=== PATIENT | male | born 1950 | race Caucasian/White ===

== ENCOUNTER 2016-07-10 02:37 | Inpatient (IN) ==
--- NOTE | 2016-07-06 09:13 | EKG Report ---
Test Performed on : 07/06/2016 09:03:07 AM Test Reason : PAT Blood Pressure : / mmHG Vent. Rate : 063 BPM Atrial Rate : 063 BPM P-R Int : 170 ms QRS Dur : 092 ms QT Int : 398 ms P-R-T Axes : 068 105 079 degrees QTc Int : 407 ms Normal sinus rhythm. Rightward axis Borderline ECG When compared with ECG of 15-MAY-2013 14:11, No significant change was found Confirmed by Francisco Javier CAMPBELL, Abrahan Huitron ([id number]) on 07/08/2016 1:14:30 PM
[2016-07-06 10:16] LABS: MANUAL DIFF NEEDED? NO; URINE MICRO REVIEW NEEDED? NO; URINE SOURCE CLEAN CATCH
[2016-07-06 10:30] LABS: BASO% 0.5 % (0.0-0.8); EOS# 0.09 X1000 (0.0-0.7); HEMATOCRIT 37.3 % (42.0-52.0); HEMOGLOBIN 12.1 g/dL (14.0-18.0); IMM GRAN# 0.02 X1000 (0.0-0.04); IMM GRAN% 0.2 % (0.0-0.5); LYMPH# 2.66 X1000 (1.2-3.4); LYMPH% 30.9 % (20.5-51.1); MCHC 32.4 g/dL (33-37); MCV 89.4 FL (81-99); MONO# 1.36 X1000 (0.11-0.59); MONO% 15.8 % (1.7-9.3); MPV 9.8 FL (7.4-10.4); NEUT% 51.6 % (42.2-75.2); PLT 413 X1000 (130-400); RBC 4.17 XMIL (4.7-6.1)
[2016-07-06 10:32] LABS: BILIRUBIN URINE NEGATIVE (NEGATIVE); BLOOD URINE NEGATIVE (NEGATIVE); COLOR STRAW; GLUCOSE URINE NEGATIVE (NEGATIVE); LEUKOCYTES URINE NEGATIVE (NEGATIVE); NITRITE URINE NEGATIVE (NEGATIVE); PH URINE 6.5; PROTEIN URINE NEGATIVE (NEGATIVE); SP GRAVITY URINE 1.006; TURBIDITY URINE CLEAR (CLEAR); UROBILINOGEN URINE NORMAL (NORMAL)
[2016-07-06 10:34] LABS: UR EPITHELIAL CELLS <10 /HPF (<10); URINE BACTERIA NEGATIVE /HPF; URINE RBC <10 /HPF (<10); URINE WBC <10 /HPF (<10)
[2016-07-06 11:11] LABS: PROTIME 9.7 Seconds (9.2-11.7); PTT 26.1 Seconds (22.0-36.0)
[2016-07-06 11:12] LABS: AGAP 12; BUN 9 mg/dL (8-22); CALCIUM 9.2 mg/dL (8.8-10.2); CHLORIDE 102 mmol/L (98-107); COSMO 282; INR 0.95; POTASSIUM 4.3 mmol/L (3.5-5.1); SODIUM 142 mmol/L (136-145); TCO2 28 mmol/L (25-35)
[2016-07-10] MEDS ORDERED: DIPRIVAN 1% 50 ML ONE (06:04)
[2016-07-10] MEDS ORDERED: TORADOL ONE (06:51)
[2016-07-10] MEDS ORDERED: DURAMORPH ONE (06:52)
[2016-07-10] MEDS ORDERED: MARCAINE 0.25% PF/EPI 1:200,000 ONE (06:52)
[2016-07-10] MEDS ORDERED: VANCOMYCIN ONE (06:52)
[2016-07-10] MEDS ORDERED: NEOSPORIN G.U. IRRIGANT ONE (06:52)
[2016-07-10] MEDS ORDERED: EXPAREL 1.3% ONE (06:53)
[2016-07-10] MEDS ORDERED: LYRICA ONE (06:56)
[2016-07-10] MEDS ORDERED: REGLAN ONE (06:56)
[2016-07-10] MEDS ORDERED: COLACE ONE (06:56)
[2016-07-10] MEDS ORDERED: PEPCID ONE (06:56)
[2016-07-10] MEDS ORDERED: KEFZOL 2 GM/D5W 50 ML ONE (06:57)
[2016-07-10] MEDS ORDERED: CELEBREX ONE (06:57)
[2016-07-10] MEDS ORDERED: LR 1,000 ML ONE (06:57)
[2016-07-10] MEDS ORDERED: SODIUM CHLORIDE 0.9% ONE (07:00)
[2016-07-10] MEDS ORDERED: CYKLOKAPRON 1,000 MG/NS 100 ML ONE (07:53)
[2016-07-10] MEDS: CYKLOKAPRON 1,000 MG/NS 100 ML ONE ×2 (08:55→10:25)
[2016-07-10 10:00] LABS: URINE MICRO REVIEW NEEDED? NO; URINE SOURCE CATH
[2016-07-10 10:04] LABS: BILIRUBIN URINE NEGATIVE (NEGATIVE); BLOOD URINE NEGATIVE (NEGATIVE); COLOR YELLOW; GLUCOSE URINE NEGATIVE (NEGATIVE); LEUKOCYTES URINE NEGATIVE (NEGATIVE); NITRITE URINE NEGATIVE (NEGATIVE); PH URINE 5.5; PROTEIN URINE NEGATIVE (NEGATIVE); TURBIDITY URINE CLEAR (CLEAR); UROBILINOGEN URINE NORMAL (NORMAL)
[2016-07-10 10:05] LABS: UR EPITHELIAL CELLS <10 /HPF (<10); URINE BACTERIA NEGATIVE /HPF; URINE RBC <10 /HPF (<10); URINE WBC <10 /HPF (<10)
[2016-07-10] MEDS ORDERED: NS 1,000 ML ONE (10:41)
[2016-07-10] MEDS ORDERED: MORPHINE IV PRN (12:00)
[2016-07-10] MEDS ORDERED: ZOFRAN IV PRN (12:00)
[2016-07-10] MEDS ORDERED: MILK OF MAGNESIA PO PRN (12:00)
[2016-07-10] MEDS ORDERED: AMBIEN PO PRN (12:00)
[2016-07-10] MEDS: ULTRAM PO SCH ×2 (12:38→18:05)
[2016-07-10] MEDS: TYLENOL PO SCH ×2 (12:38→17:54)
[2016-07-10] MEDS: NS 1,000 ML IV SCH ×2 (12:39→21:43)
[2016-07-10] MEDS ORDERED: VERSED ONE (13:23)
[2016-07-10] MEDS ORDERED: FENTANYL ONE (13:24)
[2016-07-10] MEDS ORDERED: KETAMINE (DOSE) ONE (13:25)
[2016-07-10] MEDS ORDERED: NEO-SYNEPHRINE ONE (14:44)
[2016-07-10] MEDS ORDERED: XYLOCAINE-MPF 2% ONE (14:44)
[2016-07-10] MEDS ORDERED: ZEMURON ONE (14:45)
[2016-07-10] MEDS ORDERED: DECADRON ONE (14:45)
[2016-07-10] MEDS ORDERED: LR 3,000 ML ONE (14:45)
[2016-07-10] MEDS ORDERED: OFIRMEV 1000 MG/ISOTONIC SOLN 100 ML ONE (14:45)
--- NOTE | 2016-07-10 16:08 | OPERATIVE NOTE ---
PROCEDURE DATE: 07/10/2016 PREOPERATIVE DIAGNOSIS: Left knee degenerative joint disease. POSTOPERATIVE DIAGNOSIS: Left knee degenerative joint disease. PROCEDURE: Left total knee arthroplasty using [employer] size 10 femoral component, a size 10 tibial base plate, a 12 mm articular insert, and a 38 mm patellar component. ANESTHESIA: Spinal. SURGEON: Jesse Rivera MD JOINT RUNNER: Fern Chauhan PA-C COMPLICATIONS: None. BLOOD LOSS: Minimal. DRAINS: Hemovac x1. TOURNIQUET TIME: Approximately an hour and a half. DESCRIPTION OF PROCEDURE: The patient was brought to the operative suite and placed in supine position. After successful administration of spinal anesthesia, a well-padded tourniquet was placed on the left proximal thigh. The left lower extremity was prepped and draped in the usual sterile fashion. Leg was exsanguinated. Tourniquet insufflated to 350 torr. Longitudinal incision was then made beginning at the superior pole of the patella and extended distally to the tibia tuberosity, it was dissected sharply through the skin and subcutaneous tissue. Full- thickness skin flaps were elevated medially and laterally. A medial arthrotomy was made with a vastus snip. The medial capsule was elevated off the medial tibial plateau. The prepatellar fat pad, ACL, PCL, medial meniscus, lateral meniscus were excised. A drill was entered in the distal femur. An intramedullary guide was placed. Distal cutting block was pinned into place, distal cut made with an oscillating saw. The femur was sized to a size 10. A size 10 cutting block was then pinned into place and the anterior cuts, chamfer cuts, and posterior condylar cuts were made with the oscillating saw. Marginal osteophytes removed with a rongeur. A box cutting block was pinned into place. A box cut was made with a box osteotome and oscillating saw. Posterior condyle osteophytes removed with curved osteotome and rongeur. Attention was then directed to the tibia. A drill was entered in the center of the tibia. An intramedullary guide was placed. Alignment checked with drop daryl, referencing off the anterior cortex of the tibia and the second ray of the foot, and taking 2 mm off the low side of the tibia, which in this case, was medially. The tibial cutting block was pinned into place. The articular surface tibial plateau was then removed with the oscillating saw. There was found to be still sclerotic bone medially, therefore, an extra 2 mm was taken off the tibia. The flexion-extension gaps were checked and balanced at 12 mm. The tibia sized to size 10. A size 10 guide was used for the fin punch. The tibial trial, femoral trial, and articular insert trial were placed and taken through range of motion, found to have excellent alignment, balancing, range of motion. Attention was then directed to the patella and 9 mm of the articular surface of patella removed with oscillating saw. Patella sized to size 38. A size 38 guide was used drill peg holes. The lateral facet was chamfered 30 to 45 degrees. Patella trial was placed, taken through range of motion. He was found to have the patella subluxing laterally slightly and tilting. A lateral release was performed and this improved his patellar tracking. All trials were then removed. The knee was copiously irrigated and dried, being certain all bone bruise removed. The tibial component, femoral component, patellar component were cemented into place, excess cement being removed with a [place]. Once the cement had hardened, excess cement was again removed with osteotome, knee was copiously irrigated and dried, being certain all bone and cement debris were removed. The trial articular insert was removed. The knee was copiously infiltrated with Exparel, including the posterior capsule, anterior capsule, medial and lateral collateral ligaments, anterior musculature. A drain was placed exiting superior laterally and buried in the lateral gutter. The trial articular insert again was removed. The definitive articular insert 12 mm was locked into place and the knee was again taken through range of motion. Again, found to have excellent alignment, balancing, range of motion, patellar tracking. The knee was again copiously irrigated and dried. The medial arthrotomy was closed with 0 Vicryl. Skin edge approximated with 2-0 Vicryl. Skin was closed with skin joseluis. A sterile dressing was applied. The patient tolerated the procedure well without complication. At the end of the procedure, all counts correct x2. The patient was transferred to the recovery room in stable condition.
[2016-07-10] MEDS: OXY IR PO PRN ×2 (17:53→21:43)
[2016-07-10] MEDS: KEFZOL 2 GM/D5W 50 ML IV SCH (17:54)
[2016-07-10] MEDS ORDERED: PERIDEX MT SCH (21:00)
[2016-07-10] MEDS: CELEBREX PO SCH (21:38)
[2016-07-10] MEDS: COLACE PO SCH (21:38)
[2016-07-10] MEDS: LYRICA PO SCH (21:43)
[2016-07-11] MEDS: ULTRAM PO SCH ×2 (00:46→06:22)
[2016-07-11] MEDS: TYLENOL PO SCH ×2 (00:47→06:22)
[2016-07-11] MEDS: KEFZOL 2 GM/D5W 50 ML IV SCH (00:47)
[2016-07-11] MEDS: NS 1,000 ML IV SCH (01:38)
[2016-07-11 05:51] LABS: HEMATOCRIT 29.3 % (42.0-52.0); HEMOGLOBIN 9.3 g/dL (14.0-18.0)
[2016-07-11] MEDS ORDERED: XARELTO PO SCH (06:00)
[2016-07-11 06:06] LABS: AGAP 14; BUN 13 mg/dL (8-22); CALCIUM 8.7 mg/dL (8.8-10.2); CHLORIDE 100 mmol/L (98-107); COSMO 278; SODIUM 138 mmol/L (136-145); TCO2 24 mmol/L (25-35)
[2016-07-11 07:50] VITALS: BP 122/83
[2016-07-11] MEDS ORDERED: PRINIVIL PO SCH (09:00)
[2016-07-11] MEDS ORDERED: ZYLOPRIM PO SCH (09:00)
[2016-07-11] MEDS ORDERED: PRAVACHOL PO SCH (09:00)
[2016-07-11] MEDS ORDERED: HYDROCHLOROTHIAZIDE PO SCH (09:00)
[2016-07-11] MEDS ORDERED: FOLIC ACID PO SCH (09:00)
[2016-07-11] MEDS ORDERED: NEXIUM PO SCH (09:00)
[2016-07-11] MEDS ORDERED: PEPCID PO SCH (09:00)
[2016-07-11] MEDS ORDERED: DECADRON IV ONE (09:00)
[2016-07-11] MEDS ORDERED: TENORMIN PO SCH (09:00)
[2016-07-11] MEDS ORDERED: ASPIRIN PO SCH (09:00)
[2016-07-11] MEDS: CELEBREX PO SCH (09:27)
[2016-07-11] MEDS: COLACE PO SCH (09:28)
[2016-07-11] MEDS: LYRICA PO SCH (09:32)
--- NOTE | 2016-07-11 20:45 | DISCHARGE SUMMARY ---
ADMISSION DATE: 07/10/2016 DISCHARGE DATE: 07/11/2016 DISCHARGE DIAGNOSIS: Left knee degenerative joint disease status post left total knee arthroplasty. DISCHARGE MEDICATIONS: See discharge medication list. DISPOSITION: 1. Patient discharged home with home health and physical therapy. 2. Instructed to return for any signs or symptoms of infection or deep venous thrombosis. 3. Instructed to return to see Dr. Rivera next . HOSPITAL COURSE: On the day of admission, the patient underwent a left total knee arthroplasty. His postoperative course was unremarkable. He did have increased drainage from his drain, therefore, we discontinued his Zaroxolyn and put him on aspirin. At discharge he is afebrile, tolerating a regular diet, ambulating well with physical therapy. His wound is clean, dry, intact without sign of infection. His calves are soft without sign of deep venous thrombosis. His hematocrit is stable at approximately 30. He is discharged home in stable condition with instructions to follow up as described above.
== END 2016-07-11 10:48 | disposition home health service (06) | DRG 470 ==
LOC: SURHOLD 02:37 → 4N 11:13
PROVIDERS: ADMIT Orthopaedic Surgery; ATTEND Orthopaedic Surgery
PROC: 0SRD0J9 Replacement of Left Knee Joint with Synthetic Substitute, Cemented, Open Approach (ICD-10-PCS; principal; 2016-07-10 08:42)
DX: M17.12 Unilateral primary osteoarthritis, left knee (principal); I10 Essential (primary) hypertension; Z87.891 Personal history of nicotine dependence; Z96.651 Presence of right artificial knee joint; K21.9 Gastro-esophageal reflux disease without esophagitis; M10.9 Gout, unspecified; Z79.899 Other long term (current) drug therapy
CPT/HCPCS: 80048; 81001; 85014; 85018; 85025; 85610; 85730; 86850; 86900; 86901; 88305; 88311; 93005; 93010; 94761; 94799; C9290; J0131; J0690; J1100; J1885; J2250; J2270; J2274; J2370; J3010; J3370; J7030; J7120; 97110-GP; 97116-GP; 97530-GP